=== PATIENT | female | born 1955 | race Caucasian/White ===

== ENCOUNTER 2016-06-23 08:07 | Day surgery (SDC) | payer BC ==
--- NOTE | 2016-06-22 16:47 | PCM.PREANE ---
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 Respiratory: Reports: no symptoms Cardiovascular: Reports: no symptoms GI: Reports: no symptoms Other: Reports: none - PHYSICAL ASSESSMENT Height: 1.7 m Weight: 63.049 kg NPO Status Date: 06/22/16 NPO Status Time: 21:30 ASA Class: 2 Mental Status: alert & oriented x3 Dentition: Reports: normal dentition Thyro-Mental Finger Breadths: 3 Mouth Opening Finger Breadths: 3 ROM/Head Extension: full Respiratory Status: lungs clear to auscultation bilaterally Cardiovascular Status: regular rate & rhythm, normal S1, S2, no murmur, blood pressure WNL - ALLERGIES Allergies/Adverse Reactions: Allergies Allergy/AdvReac Type Severity Reaction Status Date / Time iodine contrast media Allergy Itching Uncoded 06/18/16 11:34 - ANESTHESIA PLAN Anesthesia Type Planned: MAC - ACKNOWLEDGEMENTS Pt an appropriate candidate for the planned anesthesia: Yes Alternatives and risks of anesthesia discussed w pt/guardian: Yes Pt/Guardian understands and agree with anesthesia plan: Yes PreAnesthesia Questionnaire HEENT History: Reports: Other (see below) Other HEENT History: wears glassses/contacts Cardiovascular History: Reports: High cholesterol, Other (see below) Other Cardiovascular History: "slight murmur" Genitourinary History: Reports: None 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: Musculoskeletal History: Reports: Osteoarthritis - Past Surgical History Head Surgeries/Procedures: Reports: None HEENT Surgical History: Reports: Tonsillectomy Female Surgical History: Reports: Cystoscopy, D&C Musculoskeletal Surgical History: Reports: Other (see below) Other Musculoskeletal Surgeries/Procedures:: bunionectomy - SUBSTANCE USE Smoking Status *Q: Never Smoker Recreational Drug Use History: No - HOME MEDS Home Medications: Home Meds Ascorbic Acid [Vitamin C] 1,000 mg PO DAILY 06/17/16 [History] Calcium Citrate/Vitamin D3 [Citracal-Vit D 200 mg-250 Tab] 1 tab PO DAILY [History] Cranberry Conc/C/Bacill Coag [Cranberry Tablet] 1 tab PO DAILY 06/17/16 [History ] Glucosamine [Glucosamine Sulfate] 1 tab PO BID 06/17/16 [History] Krill/Om-3/DHA/EPA/Phospho/Ast [[place]-3 Krill Oil 1,000 mg] 2,000 mg PO BID [History] Multivits,Ca,Minerals/Iron/FA [Women's Daily Formula Caplet] 1 tab PO DAILY [History] Simvastatin [Zocor] 20 mg PO BEDTIME 06/17/16 [History] Vitamin E 2 tab PO DAILY 06/17/16 [History] Zinc 50 mg PO DAILY 06/17/16 [History] - CURRENT (IN HOUSE) MEDS Current Meds: Current Medications Lactated Ringer's (Ringers, Lactated) 1,000 mls @ 125 mls/hr IV ASDIRECTED LINDA Sodium Chloride (Saline Flush) 10 ml FLUSH ASDIRECTED PRN PRN Reason: Keep Vein Open Sodium Chloride (Saline Flush) 2.5 ml FLUSH ASDIRECTED PRN PRN Reason: Keep Vein Open
[~2016-06-23 08:07] MED LIST: Lactated Ringers 1,000 ML IV SCH; Lidocaine 2% 5 ML SDV ONE; Propofol 200 MG/20 ML SDV ONE; Sodium Chloride 0.9% 10 ML Syringe FLUSH PRN; Sodium Chloride 0.9% 2.5 ML Syringe FLUSH PRN; fentaNYL 100 MCG/2 ML SDV ONE
[2016-06-23] MEDS ORDERED: Glycopyrrolate 0.2 MG/ML SDV ONE (10:03)
--- NOTE | 2016-06-23 10:27 | PCM.OPNOTE ---
- General Post-Op/Procedure Note Date of Surgery/Procedure: 06/23/16 Operative Procedure(s): Sigmoidoscopy Findings: 1mm sessile sigmoid polyp Pre Op Diagnosis: Screening colonoscopy Post-Op Diagnosis: Colon polyp Anesthesia Technique: General ET tube Primary Surgeon: Nalini Navarro Pathology: sigmoid polyp Condition: Good
[2016-06-23 10:41] VITALS: BP 121/63
--- NOTE | 2016-06-23 10:51 | PCM.POSTAN ---
POST ANESTHESIA ASSESSMENT - MENTAL STATUS Mental Status: alert, oriented - RESPIRATORY Respiratory Status: respiratory rate WNL, airway patent, O2 saturation stable - CARDIOVASCULAR CV Status: pulse rate WNL, blood pressure stable - GASTROINTESTINAL GI Status: no symptoms - POST OP HYDRATION Hydration Status: adequate & stable
--- NOTE | 2016-06-23 10:58 | PCM48HPAN ---
Post Anesthesia Note - EVALUATION WITHIN 48HRS OF ANESTHETIC Vital Signs in Normal Range: Yes Patient Participated in Evaluation: Yes Respiratory Function Stable: Yes Airway Patent: Yes Cardiovascular Function Stable: Yes Hydration Status Stable: Yes Pain Control Satisfactory: Yes Nausea and Vomiting Control Satisfactory: Yes Mental Status Recovered: Yes
--- NOTE | 2016-06-23 18:51 | OR ---
SURGEON: ILANA SPIVEY MD DATE OF PROCEDURE: 06/23/2016 PREOPERATIVE DIAGNOSIS: Screening colonoscopy. POSTOPERATIVE DIAGNOSIS: Sigmoid colon polyp. PROCEDURE PERFORMED: Screening colonoscopy. ANESTHESIA: MAC. EXTENT OF EXAM: To the cecum. INSTRUMENT USED: Olympus colonoscope. PREPARATION: Good. LIMITATIONS: None. INDICATIONS: The patient is a 60-year-old female, presents for screening colonoscopy. We discussed the procedure as well as expected perioperative course. We discussed the risks of the procedure including bleeding, infection, or damage to surrounding structures, including perforation. The patient verbalized understanding and wished to proceed. PROCEDURE IN DETAIL: The patient was brought to the endoscopy suite and placed in the left lateral decubitus position. A time-out was completed verifying the patient's name, age, date of , allergies, and procedure to be performed. Monitored anesthesia care was then induced and continuous oxygen was provided via nasal cannula throughout the procedure. After adequate sedation was achieved, a digital rectal exam was performed. This examination was within normal limits. A well lubricated colonoscope was then inserted in the rectum and advanced under direct visualization to the level of the cecum. The cecum was identified by both visual and anatomic landmarks. A photograph was taken of the cecal cap as well as with the scope retroflexed within the cecum. The scope was then fully withdrawn while examining the color, texture, anatomy, and integrity of the mucosa from the cecum to the anal canal. A 1 mm sessile polyp was noted within the sigmoid colon. This was removed with a cold biopsy forceps. The remainder of the colon appeared normal. The scope was brought into the rectum and retroflexed to allow visualization of the anal canal opening. This was attempted multiple times, however, I was not able to retroflex as the patient was not holding air within the rectum and the scope would not retroflex appropriately. I then took extra time slowly removing the scope to allow adequate visualization of the rectum and anal canal opening. This all appeared normal. The scope was fully removed and the procedure terminated. The patient was then transferred to the recovery room in stable condition. The cecum to anus time was greater than 6 minutes. ENDOSCOPIC DIAGNOSIS: Sigmoid polyp. RECOMMENDATIONS: Follow up in clinic in 2 weeks. KYAW CASTRO /[id number]
== END 2016-06-23 10:50 | disposition home or self-care (01) ==
LOC: MW.SDS 08:07
PROVIDERS: ATTEND Surgery
DX: Z12.11 Encounter for screening for malignant neoplasm of colon (principal); K63.5 Polyp of colon; E78.00 Pure hypercholesterolemia, unspecified; Z91.041 Radiographic dye allergy status; Z79.899 Other long term (current) drug therapy; Z98.890 Other specified postprocedural states; Z72.0 Tobacco use
CPT/HCPCS: 45380; J3010; J7120; 88305; J2704